=== PATIENT | female | born 1980 | race American Indian/Alaskan Native ===

== ENCOUNTER 2018-11-10 16:23 | Emergency (ER) | payer SELFPAY ==
[2018-11-10 16:44] VITALS: BP 171/94
[2018-11-10] MEDS ORDERED: TORADOL IM ONE (20:07)
[2018-11-10] MEDS ORDERED: TORADOL ONE (20:07)
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
== END 2018-11-10 20:30 | disposition home or self-care (01) ==
LOC: ED 16:23
DX: S39.012A Strain of muscle, fascia and tendon of lower back, initial encounter (principal); Z79.899 Other long term (current) drug therapy; V87.7XXA Person injured in collision between other specified motor vehicles (traffic), initial encounter; Y93.89 Activity, other specified; Y92.488 Other paved roadways as the place of occurrence of the external cause; Y99.8 Other external cause status
CPT/HCPCS: 96372; 99282; J1885

== ENCOUNTER 2018-12-11 18:44 | Emergency (ER) | payer SELFPAY | END 2018-12-11 21:50 | disposition left against medical advice (07) | LOC: ED 18:44 | DX: M54.5 Low back pain (principal); Z53.21 Procedure and treatment not carried out due to patient leaving prior to being seen by health care provider ==

== ENCOUNTER 2018-12-19 18:01 | Emergency (ER) | payer SELFPAY ==
[2018-12-19 19:17] VITALS: BP 130/82
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
== END 2018-12-19 19:35 | disposition left against medical advice (07) ==
LOC: ED 18:01
DX: M54.5 Low back pain (principal); Z53.21 Procedure and treatment not carried out due to patient leaving prior to being seen by health care provider

== ENCOUNTER 2018-12-21 17:45 | Emergency (ER) | payer SELFPAY ==
[2018-12-21 18:12] VITALS: BP 135/80
--- NOTE | 2018-12-21 18:18 | Emergency Department Report ---
ED General Adult HPI - General Chief complaint: Back Pain/Injury Stated complaint: LOWER BACK PAIN Time Seen by Provider: 12/21/18 18:14 Source: patient Mode of arrival: Ambulatory Limitations: No Limitations - History of Present Illness Initial comments: Pt complains of continued intermittent back spasms since despite flexeril x a week. Seen here x2 for the same. States ibuprofen helps some. Pt states flexeril makes her nauseous. She denies any new injuries or worsening of pain. She also denies loss of bladder/bowel control, numbness/tingling, or weakness in legs -: Sudden Consistency: intermittent Improves with: medication Worsens with: none Associated Symptoms: denies other symptoms Treatments Prior to Arrival: NSAID - Related Data Previous Rx's Medication Instructions Recorded Last Taken Type Menthol/Camphor [[place] 1 applicatio TP QID PRN #1 tube 11/10/18 Unknown Rx Ointment] Naproxen [Naprosyn TAB] 500 mg PO BID PRN #30 tablet 11/10/18 Unknown Rx methOCARBAMOL [Robaxin TAB] 1,500 mg PO TID PRN #30 tablet 12/21/18 Unknown Rx Allergies Allergy/AdvReac Type Severity Reaction Status Date / Time No Known Allergies Allergy Verified 12/21/18 18:12 ED Review of Systems ROS: Stated complaint: LOWER BACK PAIN Other details as noted in HPI Comment: All other systems reviewed and negative Musculoskeletal: as per HPI Neurological: as per HPI ED Past Medical Hx - Surgical History Additional Surgical History: C section - Social History Smoking Status: Never Smoker Substance Use Type: None - Medications Home Medications: Home Medications Medication Instructions Recorded Confirmed Last Taken Type Menthol/Camphor [[place] 1 applicatio TP QID PRN #1 tube 11/10/18 Unknown Rx Ointment] Naproxen [Naprosyn TAB] 500 mg PO BID PRN #30 tablet 11/10/18 Unknown Rx methOCARBAMOL [Robaxin TAB] 1,500 mg PO TID PRN #30 tablet 12/21/18 Unknown Rx ED Physical Exam - General Limitations: No Limitations General appearance: alert, in no apparent distress - Head Head exam: Present: atraumatic, normocephalic - Eye Eye exam: Present: normal appearance - Respiratory Respiratory exam: Present: normal lung sounds bilaterally. Absent: respiratory distress - Cardiovascular Cardiovascular Exam: Present: regular rate, normal rhythm. Absent: systolic murmur, diastolic murmur, rubs, gallop - GI/Abdominal GI/Abdominal exam: Present: soft. Absent: tenderness - Extremities Exam Extremities exam: Present: normal inspection, full ROM - Back Exam Back exam: Present: normal inspection, full ROM. Absent: tenderness, muscle spasm, paraspinal tenderness, vertebral tenderness - Neurological Exam Neurological exam: Present: alert, oriented X3, abnormal gait, motor sensory deficit ED Course Vital Signs 12/21/18 18:11 Temperature 97.7 F Pulse Rate 78 Respiratory 16 Rate Blood Pressure 135/80 O2 Sat by Pulse 99 Oximetry ED Medical Decision Making - Medical Decision Making Pt here for intermittent muscle spasms .Pt unable to tolerate flexeril due to nausea-switched to robaxin. Pt informed to f/u with PCP for further care. Strict return precuations discussed in detail with pt who states understanding Critical care attestation.: If time is entered above; I have spent that time in minutes in the direct care of this critically ill patient, excluding procedure time. ED Disposition Clinical Impression: Muscle spasm Disposition: DC-01 TO HOME OR SELFCARE Is pt being admited?: No Condition: Stable Instructions: Muscle Spasm (ED) Prescriptions: methOCARBAMOL [Robaxin TAB] 1,500 mg PO TID PRN #30 tablet PRN Reason: Muscle Spasm Referrals: [facility] [Provider Group] - 3-5 Days Time of Disposition: 18:18
== END 2018-12-21 18:29 | disposition home or self-care (01) ==
LOC: ED 17:45
DX: M62.838 Other muscle spasm (principal); R11.0 Nausea
CPT/HCPCS: 99282